=== PATIENT | female | born 1955 | race Two or more races ===

== ENCOUNTER 2016-08-07 13:40 | Inpatient (IN) | payer MEDICAID ==
[~2016-08-07] VITALS: Ht 162.6 cm; Wt 54.2 kg
[~2016-08-07 13:40] MED LIST: ASPI81CH43; BENA40TA2; ESOM40CA39; FENO5TAB; METF-312; POTA12PO2; PRAVASTATIN
[2016-08-07] MEDS ORDERED: SODIUM CHLORIDE 0.9% 500 ML IV ONE (14:35)
[2016-08-07] MEDS ORDERED: LORazepam 2MG/ML-1ML VIAL IV ONE (14:45)
[2016-08-07 15:00] LABS: Albumin 3.5 g/dL (3.4-5.0); BUN/Creatinine Ratio 26.3; Bilirubin, Total 0.2 mg/dL (0.2-1.0); Calcium 9.4 mg/dL (8.5-10.1); Potassium 4.4 mmol/L (3.5-5.1); Total Protein 7.5 g/dL (6.4-8.2)
[2016-08-07 15:03] LABS: Basophils # (auto) 0 uL; Basophils % (auto) 0.2 % (0.0-2.0); DEFINITIVE VIEW TRANSMISSION; Eosinophils # (auto) 0 uL; Eosinophils % (auto) 0.2 % (0.0-7.0); Hematocrit 42.8 % (36.0-46.0); Hemoglobin 13.6 g/dL (12.2-16.2); Lymphocytes # (auto) 2.3 uL; Mean Corpuscular Hemoglobin 26.8 pg (28.0-32.0); Mean Corpuscular Hgb Conc. 31.9 g/dL (32.0-36.0); Mean Platelet Volume 10.1 fL (7.4-10.4); Monocytes # (auto) 0.5 uL; Monocytes % (auto) 2.8 % (0.0-12.0); Neutrophils # (auto) 14.9 uL; Neutrophils % (auto) 83.8 % (37.0-80.0); Platelet Count (auto) 462 10^3/uL (140-450); Red Cell Distribution Width 18.9 % (11.6-16.0); White Blood Cell 17.7 10^3/uL (4.4-10.8)
[2016-08-07 15:27] LABS: Lactic Acid 6.6 mmol/L (0.4-2.0)
[2016-08-07 15:50] LABS: REFLEX LACTIC ACID YES OR NO YES
[2016-08-07] MEDS ORDERED: LEVOFLOXACIN 500MG 100 ML IV ONE (16:30)
[2016-08-07 16:59] LABS: Urine Bilirubin Negative (Negative); Urine Blood 1+ /uL (Negative); Urine Color Yellow (Yellow); Urine Glucose 3+ mg/dL (Normal); Urine Ketone Negative (Negative); Urine Nitrite Negative (Negative); Urine RBC 2 /hpf (0 - 4); Urine Urobilinogen Normal (Negative)
[2016-08-07] MEDS ORDERED: SODIUM CHLORIDE 0.9% 1,000 ML IV ONE ×2 (18:45→20:45)
[2016-08-07] MEDS ORDERED: HYDROmorphone HCL 2 MG/ML VL IV ONE (19:45)
[2016-08-07] MEDS ORDERED: ONDANSETRON HCL 4 MG/2 ML VIAL IV ONE (19:45)
[2016-08-07] MEDS: MEGESTROL ACETATE 20 MG TAB PO SCH (22:00)
[2016-08-07] MEDS ORDERED: VANCOMYCIN 1GM/250ML D5W 250 ML IV ONE (22:00)
[2016-08-07] MEDS: PRAVASTATIN SODIUM 20 MG TAB PO SCH (22:00)
[2016-08-07] MEDS ORDERED: NITROGLYCERIN 0.4 MG SL TAB SL PRN (22:15)
[2016-08-07] MEDS ORDERED: MORPHINE SULF INJ 2 MG/ML SYRINGE 1ML IV PRN (22:15)
[2016-08-07] MEDS ORDERED: ACETAMINOPHEN 325 MG TAB PO PRN (22:15)
[2016-08-07] MEDS ORDERED: ONDANSETRON HCL 4 MG/2 ML VIAL IV PRN (22:15)
[2016-08-07] MEDS ORDERED: DEXTROSE (50%) 50ML SYRG IV PRN (22:15)
[2016-08-07] MEDS: METOPROLOL TARTRATE 50 MG TAB PO SCH (22:29)
[2016-08-07] MEDS: HYDROcodone-ACET 5/325MG TAB PO PRN (22:31)
[2016-08-07 22:43] LABS: BUN/Creatinine Ratio 29.4; Calcium 7.9 mg/dL (8.5-10.1); Potassium 4.3 mmol/L (3.5-5.1)
[2016-08-07] MEDS: FAMOTIDINE 20 MG TAB PO SCH (22:45)
[2016-08-07] MEDS: ENOXAPARIN SOD 30 MG/0.3 ML SYRINGE SC SCH (22:45)
[2016-08-07 23:25] VITALS: BP 156/85
[2016-08-08] MEDS: PIPERACILLIN-TAZOB 3.375GM 100 ML IV SCH ×5 (00:10→23:34)
[2016-08-08] MEDS: ACCU-CHEK COMFORT CURVE STRIP VI SCH ×5 (00:15→23:34)
[2016-08-08] MEDS: InsuLIN REG 1unit/0.01ml Soln (100units/ml) SC SCH ×5 (00:15→23:34)
[2016-08-08] MEDS ORDERED: LISI10TA6 PO (00:42)
[2016-08-08] MEDS ORDERED: ATOR40TA52 PO (00:42)
[2016-08-08] MEDS ORDERED: MEGE40TA15 PO (00:42)
[2016-08-08] MEDS ORDERED: GABA300C8 PO (00:42)
[2016-08-08] MEDS ORDERED: PRAV20TA3 PO (00:42)
[2016-08-08] MEDS ORDERED: OMEP20CA5 OR (00:42)
[2016-08-08 05:00] VITALS: BP_SYST 147; BP_SYST 168; BP_DIAS 55; BP_DIAS 76
[2016-08-08] MEDS: HYDROcodone-ACET 5/325MG TAB PO PRN ×2 (05:14→09:09)
[2016-08-08 06:47] LABS: Basophils # (auto) 0 uL; Basophils % (auto) 0.3 % (0.0-2.0); Eosinophils # (auto) 0.1 uL; Eosinophils % (auto) 0.6 % (0.0-7.0); Hematocrit 30.5 % (36.0-46.0); Lymphocytes # (auto) 2.2 uL; Lymphocytes % (auto) 22.4 % (10.0-50.0); Mean Corpuscular Hemoglobin 27.2 pg (28.0-32.0); Mean Corpuscular Hgb Conc. 32.9 g/dL (32.0-36.0); Mean Corpuscular Volume 82.7 fL (80.0-100.0); Mean Platelet Volume 9.9 fL (7.4-10.4); Monocytes # (auto) 0.6 uL; Monocytes % (auto) 6.4 % (0.0-12.0); Neutrophils # (auto) 6.8 uL; Neutrophils % (auto) 70.3 % (37.0-80.0); Platelet Count (auto) 263 10^3/uL (140-450); Red Cell Distribution Width 18.5 % (11.6-16.0); White Blood Cell 9.7 10^3/uL (4.4-10.8)
[2016-08-08 06:58] LABS: Potassium 4.9 mmol/L (3.5-5.1)
[2016-08-08 07:07] LABS: Albumin 2.6 g/dL (3.4-5.0); BUN/Creatinine Ratio 26.5; Calcium 8.5 mg/dL (8.5-10.1)
[2016-08-08 07:21] LABS: Bilirubin, Total 0.2 mg/dL (0.2-1.0); Total Protein 5.4 g/dL (6.4-8.2)
[2016-08-08] MEDS: FAMOTIDINE 20 MG TAB PO SCH ×2 (09:10→21:37)
[2016-08-08] MEDS: MEGESTROL ACETATE 20 MG TAB PO SCH ×2 (09:11→21:37)
[2016-08-08] MEDS: METOPROLOL TARTRATE 50 MG TAB PO SCH ×3 (09:16→22:00)
[2016-08-08] MEDS: BENAZEPRIL HCL 10 MG TAB PO SCH (09:17)
[2016-08-08] MEDS ORDERED: HYDROcodone-ACET 5/325MG TAB PO PRN (10:43)
[2016-08-08] MEDS: KETOROLAC TROMETH 30 MG/ML 1ML VIAL IV PRN ×2 (11:06→18:41)
[2016-08-08 13:00] VITALS: BP 148/78
[2016-08-08 18:00] VITALS: BP 189/82
[2016-08-08] MEDS ORDERED: amLODIPine BESYLATE 5 MG TAB PO ONE (19:30)
[2016-08-08 20:00] VITALS: BP 150/115
[2016-08-08] MEDS ORDERED: ASPirin 81 mg TAB PO ONE (20:00)
[2016-08-08] MEDS: ENOXAPARIN SOD 30 MG/0.3 ML SYRINGE SC SCH (20:58)
[2016-08-08] MEDS: PRAVASTATIN SODIUM 20 MG TAB PO SCH (21:37)
[2016-08-08] MEDS: GABAPENTIN 300 MG CAP PO SCH (21:38)
[2016-08-08 22:53] LABS: Cholesterol 113 mg/dL (<200); HDL Cholesterol 40 mg/dL (40-59); LDL Cholesterol 50 mg/dL (<100); Triglycerides 131 mg/dL (<150)
[2016-08-08] MEDS: HYDROcodone-ACET 7.5/325MG TAB PO PRN (23:34)
[2016-08-09] MEDS: KETOROLAC TROMETH 30 MG/ML 1ML VIAL IV PRN ×3 (00:44→17:58)
[2016-08-09] MEDS: METOPROLOL TARTRATE 50 MG TAB PO SCH ×3 (05:20→22:01)
[2016-08-09] MEDS: GABAPENTIN 300 MG CAP PO SCH ×3 (05:32→22:02)
[2016-08-09] MEDS: ACCU-CHEK COMFORT CURVE STRIP VI SCH ×3 (05:34→18:07)
[2016-08-09] MEDS: PIPERACILLIN-TAZOB 3.375GM 100 ML IV SCH ×3 (05:34→17:49)
[2016-08-09] MEDS: InsuLIN REG 1unit/0.01ml Soln (100units/ml) SC SCH ×3 (05:40→18:08)
[2016-08-09] MEDS: metFORMIN HYDROCHLORIDE 500 MG TAB PO SCH ×2 (08:19→17:49)
[2016-08-09 09:00] VITALS: BP 177/70
[2016-08-09] MEDS: ASPirin 81 mg TAB PO SCH (10:55)
[2016-08-09] MEDS: FAMOTIDINE 20 MG TAB PO SCH ×2 (10:56→22:02)
[2016-08-09] MEDS: MEGESTROL ACETATE 20 MG TAB PO SCH ×2 (10:56→22:01)
[2016-08-09] MEDS: amLODIPine BESYLATE 5 MG TAB PO SCH (10:56)
[2016-08-09] MEDS: BENAZEPRIL HCL 10 MG TAB PO SCH (10:57)
[2016-08-09 13:00] VITALS: BP 130/67
[2016-08-09 17:00] VITALS: BP 182/77
[2016-08-09] MEDS: cloNIDine HCL 0.1 MG TAB PO PRN (18:56)
[2016-08-09] MEDS: ENOXAPARIN SOD 30 MG/0.3 ML SYRINGE SC SCH (20:37)
[2016-08-09] MEDS: PRAVASTATIN SODIUM 20 MG TAB PO SCH (22:02)
[2016-08-10] MEDS: PIPERACILLIN-TAZOB 3.375GM 100 ML IV SCH ×4 (00:02→17:39)
[2016-08-10] MEDS: KETOROLAC TROMETH 30 MG/ML 1ML VIAL IV PRN ×3 (00:02→19:48)
[2016-08-10] MEDS: ACCU-CHEK COMFORT CURVE STRIP VI SCH ×4 (00:02→17:57)
[2016-08-10] MEDS: cloNIDine HCL 0.1 MG TAB PO PRN ×2 (00:03→12:31)
[2016-08-10] MEDS: GABAPENTIN 300 MG CAP PO SCH ×3 (05:56→22:00)
[2016-08-10] MEDS: InsuLIN REG 1unit/0.01ml Soln (100units/ml) SC SCH ×4 (05:57→18:00)
[2016-08-10 07:59] LABS: INR 1.08 (0.9-1.15); Partial Thromboplastin Time 25.4 sec (22.64-33.71); Prothrombin Time 11.1 sec (9.37-12.3)
[2016-08-10] MEDS: metFORMIN HYDROCHLORIDE 500 MG TAB PO SCH (08:00)
[2016-08-10] MEDS ORDERED: IOHEXOL 350 MG/ML 100ML IJ ONE (08:44)
[2016-08-10 09:00] VITALS: BP 194/74
[2016-08-10] MEDS: MEGESTROL ACETATE 20 MG TAB PO SCH ×2 (10:15→22:00)
[2016-08-10] MEDS: ASPirin 81 mg TAB PO SCH (10:15)
[2016-08-10] MEDS: FAMOTIDINE 20 MG TAB PO SCH ×2 (10:15→22:01)
[2016-08-10] MEDS: BENAZEPRIL HCL 10 MG TAB PO SCH (10:18)
[2016-08-10] MEDS: CYANOCOBALAMIN 500 MCG TAB PO SCH (10:19)
[2016-08-10] MEDS: amLODIPine BESYLATE 5 MG TAB PO SCH (10:19)
[2016-08-10] MEDS: METOPROLOL TARTRATE 50 MG TAB PO SCH ×2 (10:19→22:01)
[2016-08-10 13:00] VITALS: BP 198/84
[2016-08-10 15:53] VITALS: BP 158/88
[2016-08-10 15:54] VITALS: BP 158/88
[2016-08-10] MEDS: ENOXAPARIN SOD 30 MG/0.3 ML SYRINGE SC SCH (19:48)
[2016-08-10 22:00] VITALS: BP 185/66
[2016-08-10] MEDS ORDERED: ATENOLOL 25 MG TAB PO SCH (22:00)
[2016-08-10] MEDS: PRAVASTATIN SODIUM 20 MG TAB PO SCH (22:00)
[2016-08-11] VITALS (7 sets, daily range): BP systolic 143–187; BP diastolic 69–76
[2016-08-11] MEDS: ACCU-CHEK COMFORT CURVE STRIP VI SCH ×4 (00:24→18:12)
[2016-08-11] MEDS: PIPERACILLIN-TAZOB 3.375GM 100 ML IV SCH ×4 (00:24→17:49)
[2016-08-11] MEDS: cloNIDine HCL 0.1 MG TAB PO PRN ×5 (00:24→22:10)
[2016-08-11] MEDS: KETOROLAC TROMETH 30 MG/ML 1ML VIAL IV PRN ×3 (02:12→22:00)
[2016-08-11] MEDS: InsuLIN REG 1unit/0.01ml Soln (100units/ml) SC SCH ×4 (05:29→18:13)
[2016-08-11] MEDS: GABAPENTIN 300 MG CAP PO SCH ×3 (05:29→21:04)
[2016-08-11 06:51] LABS: Basophils # (auto) 0.1 uL; Basophils % (auto) 0.6 % (0.0-2.0); DEFINITIVE VIEW TRANSMISSION; Eosinophils # (auto) 0.2 uL; Eosinophils % (auto) 2.9 % (0.0-7.0); Hematocrit 31.1 % (36.0-46.0); Hemoglobin 10.1 g/dL (12.2-16.2); Lymphocytes # (auto) 2.4 uL; Lymphocytes % (auto) 28.5 % (10.0-50.0); Mean Corpuscular Hemoglobin 26.9 pg (28.0-32.0); Mean Corpuscular Hgb Conc. 32.3 g/dL (32.0-36.0); Mean Corpuscular Volume 83.4 fL (80.0-100.0); Monocytes # (auto) 0.6 uL; Monocytes % (auto) 7.2 % (0.0-12.0); Neutrophils # (auto) 5.2 uL; Neutrophils % (auto) 60.8 % (37.0-80.0); Platelet Count (auto) 255 10^3/uL (140-450); White Blood Cell 8.6 10^3/uL (4.4-10.8)
[2016-08-11 07:08] LABS: Calcium 9.1 mg/dL (8.5-10.1); Potassium 4.5 mmol/L (3.5-5.1)
[2016-08-11 07:12] LABS: BUN/Creatinine Ratio 18.8
[2016-08-11] MEDS ORDERED: BUPIVACAINE 0.75% INJ 10ML MPV SDV IJ ONE ×2 (08:09→08:39)
[2016-08-11] MEDS ORDERED: ceFAZolin 1GM VL ONE (08:09)
[2016-08-11] MEDS ORDERED: ceFAZolin 1GM/50ML D5W 50 ML IV ONE (08:11)
[2016-08-11] MEDS ORDERED: fentaNYL CITRATE 100 MCG/2 ML VL ONE (08:14)
[2016-08-11] MEDS ORDERED: MIDAZOLAM HCL 1MG/1ML-2 ML VIAL ONE (08:14)
[2016-08-11] MEDS ORDERED: ONDANSETRON HCL 4 MG/2 ML VIAL IV ONE ×2 (08:15→09:15)
[2016-08-11] MEDS ORDERED: ePHEDrine SULFATE 50 MG/ML AMP IV PRN ×2 (08:15→09:15)
[2016-08-11] MEDS ORDERED: PROPOFOL 10 MG/ML 20 ML IV ONE (08:15)
[2016-08-11] MEDS ORDERED: LABETALOL HCL 5 MG/ML 4ML SYRINGE IV PRN ×2 (08:15→09:15)
[2016-08-11] MEDS ORDERED: MIDAZOLAM HCL 1MG/1ML-2 ML VIAL IV PRN ×2 (08:15→09:15)
[2016-08-11] MEDS ORDERED: ACCU-CHEK COMFORT CURVE STRIP VI ONE (08:15)
[2016-08-11] MEDS ORDERED: MORPHINE SULF INJ 2 MG/ML SYRINGE 1ML IV PRN ×2 (08:15→09:15)
[2016-08-11] MEDS ORDERED: DEXAMETHASONE SOD PHOS 10MG/1ML VIAL INJ ONE (08:15)
[2016-08-11] MEDS ORDERED: HYDROmorphone HCL 2 MG/ML VL IV PRN ×2 (08:15→09:15)
[2016-08-11] MEDS ORDERED: KETOROLAC TROMETH 30 MG/ML 1ML VIAL IV ONE ×2 (08:15→09:15)
[2016-08-11] MEDS ORDERED: NEOMYCIN-BACITRACIN-POLYM 15GM TOP OINT TOP ONE (08:50)
[2016-08-11] MEDS ORDERED: hydrALAZINE HCL 20 MG/ML VL IV PRN (09:15)
[2016-08-11] MEDS: BENAZEPRIL HCL 10 MG TAB PO SCH (10:14)
[2016-08-11] MEDS: amLODIPine BESYLATE 5 MG TAB PO SCH (10:14)
[2016-08-11] MEDS: FAMOTIDINE 20 MG TAB PO SCH ×2 (10:15→21:04)
[2016-08-11] MEDS: ASPirin 81 mg TAB PO SCH (10:15)
[2016-08-11] MEDS: MEGESTROL ACETATE 20 MG TAB PO SCH ×2 (10:15→21:04)
[2016-08-11] MEDS: CYANOCOBALAMIN 500 MCG TAB PO SCH (10:15)
[2016-08-11] MEDS: METOPROLOL TARTRATE 50 MG TAB PO SCH ×2 (10:15→21:03)
[2016-08-11] MEDS ORDERED: METOPROLOL TARTRATE 50 MG TAB PO ONE (12:00)
[2016-08-11] MEDS ORDERED: amLODIPine BESYLATE 5 MG TAB PO ONE (12:00)
[2016-08-11] MEDS: ENOXAPARIN SOD 30 MG/0.3 ML SYRINGE SC SCH (20:52)
[2016-08-11] MEDS: PRAVASTATIN SODIUM 20 MG TAB PO SCH (21:04)
[2016-08-12] MEDS: PIPERACILLIN-TAZOB 3.375GM 100 ML IV SCH ×5 (00:04→23:39)
[2016-08-12] MEDS: InsuLIN REG 1unit/0.01ml Soln (100units/ml) SC SCH ×5 (00:14→23:31)
[2016-08-12] MEDS: ACCU-CHEK COMFORT CURVE STRIP VI SCH ×5 (00:15→23:39)
[2016-08-12 04:55] VITALS: BP 167/77
[2016-08-12] MEDS: GABAPENTIN 300 MG CAP PO SCH ×3 (05:37→21:12)
[2016-08-12] MEDS: cloNIDine HCL 0.1 MG TAB PO PRN ×2 (06:00→16:43)
[2016-08-12 09:00] VITALS: BP 164/81
[2016-08-12] MEDS: ASPirin 81 mg TAB PO SCH (09:21)
[2016-08-12] MEDS: MEGESTROL ACETATE 20 MG TAB PO SCH ×2 (09:22→21:11)
[2016-08-12] MEDS: FAMOTIDINE 20 MG TAB PO SCH ×2 (09:22→21:11)
[2016-08-12] MEDS: amLODIPine BESYLATE 5 MG TAB PO SCH (09:22)
[2016-08-12] MEDS: CYANOCOBALAMIN 500 MCG TAB PO SCH (09:23)
[2016-08-12] MEDS: METOPROLOL TARTRATE 50 MG TAB PO SCH ×2 (09:23→21:38)
[2016-08-12] MEDS: BENAZEPRIL HCL 10 MG TAB PO SCH (09:24)
[2016-08-12 13:00] VITALS: BP 167/75
[2016-08-12] MEDS: KETOROLAC TROMETH 30 MG/ML 1ML VIAL IV PRN (16:46)
[2016-08-12 17:00] VITALS: BP 159/72
[2016-08-12] MEDS: glipiZIDE 5 MG TAB PO SCH (17:08)
[2016-08-12] MEDS ORDERED: metFORMIN HYDROCHLORIDE 500 MG TAB PO SCH (18:00)
[2016-08-12] MEDS: metFORMIN HYDROCHLORIDE 500 MG TAB PO SCH (18:10)
[2016-08-12] MEDS: ENOXAPARIN SOD 30 MG/0.3 ML SYRINGE SC SCH (19:37)
[2016-08-12] MEDS: PRAVASTATIN SODIUM 20 MG TAB PO SCH (21:11)
[2016-08-12 21:32] VITALS: BP 157/72
[2016-08-13] MEDS: KETOROLAC TROMETH 30 MG/ML 1ML VIAL IV PRN (02:04)
[2016-08-13 05:00] VITALS: BP 166/79
[2016-08-13] MEDS: ACCU-CHEK COMFORT CURVE STRIP VI SCH ×4 (06:00→23:45)
[2016-08-13] MEDS: PIPERACILLIN-TAZOB 3.375GM 100 ML IV SCH ×4 (06:27→23:41)
[2016-08-13] MEDS: cloNIDine HCL 0.1 MG TAB PO PRN ×2 (06:28→14:56)
[2016-08-13] MEDS: GABAPENTIN 300 MG CAP PO SCH ×3 (06:28→22:23)
[2016-08-13] MEDS: glipiZIDE 5 MG TAB PO SCH (06:36)
[2016-08-13] MEDS: InsuLIN REG 1unit/0.01ml Soln (100units/ml) SC SCH ×4 (06:41→23:49)
[2016-08-13 06:45] LABS: BUN/Creatinine Ratio 19.3; Calcium 8.7 mg/dL (8.5-10.1)
[2016-08-13] MEDS: metFORMIN HYDROCHLORIDE 500 MG TAB PO SCH ×2 (08:15→18:04)
[2016-08-13 08:56] VITALS: BP 166/77
[2016-08-13] MEDS: MEGESTROL ACETATE 20 MG TAB PO SCH ×2 (09:13→22:23)
[2016-08-13] MEDS: BENAZEPRIL HCL 10 MG TAB PO SCH (09:14)
[2016-08-13] MEDS: METOPROLOL TARTRATE 50 MG TAB PO SCH ×2 (09:14→22:22)
[2016-08-13] MEDS: CYANOCOBALAMIN 500 MCG TAB PO SCH (09:15)
[2016-08-13] MEDS: ASPirin 81 mg TAB PO SCH (09:15)
[2016-08-13] MEDS: amLODIPine BESYLATE 5 MG TAB PO SCH (09:15)
[2016-08-13] MEDS: FAMOTIDINE 20 MG TAB PO SCH ×2 (09:15→22:23)
[2016-08-13 13:00] VITALS: BP 164/72
[2016-08-13] MEDS: HYDROcodone-ACET 7.5/325MG TAB PO PRN ×2 (13:21→20:03)
[2016-08-13 17:00] VITALS: BP 146/69
[2016-08-13] MEDS: ENOXAPARIN SOD 30 MG/0.3 ML SYRINGE SC SCH (20:01)
[2016-08-13 22:03] VITALS: BP 160/71
[2016-08-13] MEDS: PRAVASTATIN SODIUM 20 MG TAB PO SCH (22:22)
[2016-08-14] MEDS: HYDROcodone-ACET 7.5/325MG TAB PO PRN ×4 (02:31→22:27)
[2016-08-14 05:00] VITALS: BP 157/74
[2016-08-14] MEDS: GABAPENTIN 300 MG CAP PO SCH ×3 (05:22→22:28)
[2016-08-14] MEDS: glipiZIDE 5 MG TAB PO SCH (05:22)
[2016-08-14] MEDS: ACCU-CHEK COMFORT CURVE STRIP VI SCH ×3 (05:22→18:17)
[2016-08-14] MEDS: PIPERACILLIN-TAZOB 3.375GM 100 ML IV SCH ×3 (05:23→17:55)
[2016-08-14] MEDS: InsuLIN REG 1unit/0.01ml Soln (100units/ml) SC SCH ×3 (05:46→18:16)
[2016-08-14] MEDS: CYANOCOBALAMIN 500 MCG TAB PO SCH (09:34)
[2016-08-14] MEDS: MEGESTROL ACETATE 20 MG TAB PO SCH ×2 (09:35→22:27)
[2016-08-14] MEDS: FAMOTIDINE 20 MG TAB PO SCH ×2 (09:35→22:28)
[2016-08-14] MEDS: metFORMIN HYDROCHLORIDE 500 MG TAB PO SCH ×2 (09:35→17:55)
[2016-08-14] MEDS: ASPirin 81 mg TAB PO SCH (09:36)
[2016-08-14] MEDS: BENAZEPRIL HCL 10 MG TAB PO SCH (09:37)
[2016-08-14] MEDS: amLODIPine BESYLATE 5 MG TAB PO SCH (09:37)
[2016-08-14] MEDS: METOPROLOL TARTRATE 50 MG TAB PO SCH ×2 (09:38→22:28)
[2016-08-14 13:35] LABS: Basophils # (auto) 0 uL; Basophils % (auto) 0.3 % (0.0-2.0); Eosinophils # (auto) 0.3 uL; Eosinophils % (auto) 2.7 % (0.0-7.0); Hematocrit 33.1 % (36.0-46.0); Hemoglobin 11.2 g/dL (12.2-16.2); Lymphocytes # (auto) 1.9 uL; Lymphocytes % (auto) 17.4 % (10.0-50.0); Mean Corpuscular Hemoglobin 27.9 pg (28.0-32.0); Mean Corpuscular Hgb Conc. 33.8 g/dL (32.0-36.0); Mean Corpuscular Volume 82.6 fL (80.0-100.0); Mean Platelet Volume 9.7 fL (7.4-10.4); Monocytes # (auto) 0.6 uL; Monocytes % (auto) 5.8 % (0.0-12.0); Neutrophils # (auto) 8.1 uL; Neutrophils % (auto) 73.8 % (37.0-80.0); Platelet Count (auto) 282 10^3/uL (140-450); Red Cell Distribution Width 18.2 % (11.6-16.0); White Blood Cell 10.9 10^3/uL (4.4-10.8)
[2016-08-14] MEDS: cloNIDine HCL 0.1 MG TAB PO PRN (17:55)
[2016-08-14] MEDS: ENOXAPARIN SOD 30 MG/0.3 ML SYRINGE SC SCH (20:30)
[2016-08-14] MEDS: PRAVASTATIN SODIUM 20 MG TAB PO SCH (22:28)
[2016-08-15] MEDS: cloNIDine HCL 0.1 MG TAB PO PRN ×4 (00:36→20:27)
[2016-08-15 05:00] VITALS: BP 155/68
[2016-08-15] MEDS: InsuLIN REG 1unit/0.01ml Soln (100units/ml) SC SCH ×4 (06:00→18:26)
[2016-08-15] MEDS: ACCU-CHEK COMFORT CURVE STRIP VI SCH ×4 (06:24→18:14)
[2016-08-15] MEDS: GABAPENTIN 300 MG CAP PO SCH ×3 (06:26→21:52)
[2016-08-15] MEDS: glipiZIDE 5 MG TAB PO SCH (06:27)
[2016-08-15] MEDS: PIPERACILLIN-TAZOB 3.375GM 100 ML IV SCH ×4 (06:27→18:15)
[2016-08-15] MEDS: HYDROcodone-ACET 7.5/325MG TAB PO PRN ×3 (06:27→21:53)
[2016-08-15] MEDS: metFORMIN HYDROCHLORIDE 500 MG TAB PO SCH ×2 (08:25→18:10)
[2016-08-15 09:00] VITALS: BP 173/72
[2016-08-15] MEDS: MEGESTROL ACETATE 20 MG TAB PO SCH ×2 (10:46→21:52)
[2016-08-15] MEDS: FAMOTIDINE 20 MG TAB PO SCH ×2 (10:46→21:52)
[2016-08-15] MEDS: CYANOCOBALAMIN 500 MCG TAB PO SCH (10:46)
[2016-08-15] MEDS: ASPirin 81 mg TAB PO SCH (10:46)
[2016-08-15] MEDS: METOPROLOL TARTRATE 50 MG TAB PO SCH ×2 (10:48→21:53)
[2016-08-15] MEDS: BENAZEPRIL HCL 10 MG TAB PO SCH (10:49)
[2016-08-15] MEDS: amLODIPine BESYLATE 5 MG TAB PO SCH (10:50)
[2016-08-15 13:00] VITALS: BP 160/80
[2016-08-15 16:54] VITALS: BP 151/68
[2016-08-15] MEDS: ENOXAPARIN SOD 30 MG/0.3 ML SYRINGE SC SCH (20:27)
[2016-08-15] MEDS: PRAVASTATIN SODIUM 20 MG TAB PO SCH (21:52)
[2016-08-15 22:00] VITALS: BP 156/70
[2016-08-16] VITALS (44 sets, daily range): BP systolic 84–202; BP diastolic 50–110
[2016-08-16] MEDS: cloNIDine HCL 0.1 MG TAB PO PRN ×2 (02:20→04:22)
[2016-08-16] MEDS: HYDROcodone-ACET 7.5/325MG TAB PO PRN (05:13)
[2016-08-16] MEDS: InsuLIN REG 1unit/0.01ml Soln (100units/ml) SC SCH ×5 (06:00→23:53)
[2016-08-16] MEDS: glipiZIDE 5 MG TAB PO SCH (06:19)
[2016-08-16] MEDS: GABAPENTIN 300 MG CAP PO SCH ×3 (06:19→22:24)
[2016-08-16] MEDS: PIPERACILLIN-TAZOB 3.375GM 100 ML IV SCH ×5 (06:20→23:51)
[2016-08-16] MEDS: ACCU-CHEK COMFORT CURVE STRIP VI SCH ×5 (06:20→23:50)
[2016-08-16] MEDS: metFORMIN HYDROCHLORIDE 500 MG TAB PO SCH ×2 (08:00→18:00)
[2016-08-16] MEDS: FAMOTIDINE 20 MG TAB PO SCH ×2 (09:18→22:24)
[2016-08-16] MEDS: amLODIPine BESYLATE 5 MG TAB PO SCH (09:19)
[2016-08-16] MEDS: METOPROLOL TARTRATE 50 MG TAB PO SCH ×2 (09:19→22:00)
[2016-08-16] MEDS: MEGESTROL ACETATE 20 MG TAB PO SCH ×2 (09:20→22:24)
[2016-08-16] MEDS: CYANOCOBALAMIN 500 MCG TAB PO SCH (09:20)
[2016-08-16] MEDS: BENAZEPRIL HCL 10 MG TAB PO SCH (09:20)
[2016-08-16] MEDS: ASPirin 81 mg TAB PO SCH (09:20)
[2016-08-16] MEDS ORDERED: MIDAZOLAM HCL 1MG/1ML-2 ML VIAL IV PRN (13:30)
[2016-08-16] MEDS: MIDAZOLAM DRIP 100 mg/100mL NS 100 ML IV SCH (13:51)
[2016-08-16 15:03] LABS: BUN/Creatinine Ratio 15.9; Calcium 9.4 mg/dL (8.5-10.1); Potassium 4.7 mmol/L (3.5-5.1)
[2016-08-16] MEDS ORDERED: SODIUM BICARBONATE 8.4% INJ 50ML SYRINGE IV ONE (16:29)
[2016-08-16] MEDS ORDERED: EPINEPHrine HCL 1 MG/10 ML SYRG IV ONE (16:29)
[2016-08-16] MEDS: SOD CHL 0.45% 1,000 ML IV SCH (18:14)
[2016-08-16] MEDS: ENOXAPARIN SOD 60 MG/0.6 ML SYRINGE SC SCH (21:08)
[2016-08-16] MEDS: PRAVASTATIN SODIUM 20 MG TAB PO SCH (22:24)
[2016-08-17] VITALS (102 sets, daily range): BP systolic 123–175; BP diastolic 50–97
[2016-08-17] MEDS: SOD CHL 0.45% 1,000 ML IV SCH ×2 (03:45→10:50)
[2016-08-17 04:11] LABS: Basophils # (auto) 0 uL; Basophils % (auto) 0.5 % (0.0-2.0); Eosinophils # (auto) 0.1 uL; Eosinophils % (auto) 1.4 % (0.0-7.0); Hemoglobin 9.3 g/dL (12.2-16.2); Lymphocytes # (auto) 1.5 uL; Lymphocytes % (auto) 16.6 % (10.0-50.0); Mean Corpuscular Hemoglobin 27.6 pg (28.0-32.0); Mean Corpuscular Hgb Conc. 33.1 g/dL (32.0-36.0); Mean Corpuscular Volume 83.4 fL (80.0-100.0); Mean Platelet Volume 9.9 fL (7.4-10.4); Monocytes # (auto) 0.7 uL; Monocytes % (auto) 7.6 % (0.0-12.0); Neutrophils # (auto) 6.6 uL; Neutrophils % (auto) 73.9 % (37.0-80.0); Platelet Count (auto) 247 10^3/uL (140-450); Red Cell Distribution Width 17.5 % (11.6-16.0)
[2016-08-17 04:30] LABS: BUN/Creatinine Ratio 16.1; Calcium 8.5 mg/dL (8.5-10.1); Potassium 3.9 mmol/L (3.5-5.1)
[2016-08-17] MEDS: PIPERACILLIN-TAZOB 3.375GM 100 ML IV SCH ×3 (05:53→18:22)
[2016-08-17] MEDS: GABAPENTIN 300 MG CAP PO SCH ×3 (05:54→23:12)
[2016-08-17] MEDS: ACCU-CHEK COMFORT CURVE STRIP VI SCH ×3 (05:54→18:24)
[2016-08-17] MEDS: InsuLIN REG 1unit/0.01ml Soln (100units/ml) SC SCH ×3 (06:05→18:24)
[2016-08-17] MEDS: glipiZIDE 5 MG TAB PO SCH (07:00)
[2016-08-17] MEDS: metFORMIN HYDROCHLORIDE 500 MG TAB PO SCH ×2 (08:00→18:00)
[2016-08-17] MEDS: MIDAZOLAM DRIP 100 mg/100mL NS 100 ML IV SCH (10:49)
[2016-08-17] MEDS: amLODIPine BESYLATE 5 MG TAB PO SCH (12:51)
[2016-08-17] MEDS: CYANOCOBALAMIN 500 MCG TAB PO SCH (12:52)
[2016-08-17] MEDS: BENAZEPRIL HCL 10 MG TAB PO SCH (12:52)
[2016-08-17] MEDS: FAMOTIDINE 20 MG TAB PO SCH ×2 (12:54→23:12)
[2016-08-17] MEDS: ASPirin 81 mg TAB PO SCH (12:55)
[2016-08-17] MEDS: MEGESTROL ACETATE 20 MG TAB PO SCH ×2 (13:13→23:11)
[2016-08-17] MEDS: ENOXAPARIN SOD 60 MG/0.6 ML SYRINGE SC SCH (18:22)
[2016-08-17] MEDS: PRAVASTATIN SODIUM 20 MG TAB PO SCH (23:12)
[2016-08-18] VITALS (83 sets, daily range): BP systolic 132–189; BP diastolic 50–79
[2016-08-18] MEDS: ACCU-CHEK COMFORT CURVE STRIP VI SCH ×4 (00:04→17:42)
[2016-08-18] MEDS: PIPERACILLIN-TAZOB 3.375GM 100 ML IV SCH ×4 (00:05→17:42)
[2016-08-18] MEDS: SOD CHL 0.45% 1,000 ML IV SCH ×3 (00:08→21:23)
[2016-08-18 03:48] LABS: Basophils # (auto) 0.1 uL; Basophils % (auto) 0.7 % (0.0-2.0); Eosinophils # (auto) 0.2 uL; Hematocrit 29.5 % (36.0-46.0); Hemoglobin 9.7 g/dL (12.2-16.2); Lymphocytes # (auto) 1.4 uL; Lymphocytes % (auto) 11.4 % (10.0-50.0); Mean Corpuscular Hemoglobin 27.5 pg (28.0-32.0); Mean Corpuscular Hgb Conc. 32.9 g/dL (32.0-36.0); Mean Corpuscular Volume 83.6 fL (80.0-100.0); Mean Platelet Volume 9.9 fL (7.4-10.4); Monocytes # (auto) 0.9 uL; Monocytes % (auto) 7.6 % (0.0-12.0); Neutrophils # (auto) 9.4 uL; Neutrophils % (auto) 78.3 % (37.0-80.0); Platelet Count (auto) 267 10^3/uL (140-450); Red Cell Distribution Width 17.9 % (11.6-16.0)
[2016-08-18] MEDS: cloNIDine HCL 0.1 MG TAB PO PRN ×4 (05:35→21:24)
[2016-08-18] MEDS: InsuLIN REG 1unit/0.01ml Soln (100units/ml) SC SCH ×4 (05:42→17:46)
[2016-08-18] MEDS: GABAPENTIN 300 MG CAP PO SCH ×3 (05:46→21:55)
[2016-08-18 06:37] LABS: Calcium 8.9 mg/dL (8.5-10.1); Potassium 4.1 mmol/L (3.5-5.1)
[2016-08-18] MEDS: glipiZIDE 5 MG TAB PO SCH (07:00)
[2016-08-18] MEDS: metFORMIN HYDROCHLORIDE 500 MG TAB PO SCH ×2 (07:57→17:42)
[2016-08-18] MEDS: ASPirin 81 mg TAB PO SCH (09:23)
[2016-08-18] MEDS: amLODIPine BESYLATE 5 MG TAB PO SCH (09:23)
[2016-08-18] MEDS: MEGESTROL ACETATE 20 MG TAB PO SCH ×2 (09:24→21:55)
[2016-08-18] MEDS: CYANOCOBALAMIN 500 MCG TAB PO SCH (09:24)
[2016-08-18] MEDS: FAMOTIDINE 20 MG TAB PO SCH ×2 (09:24→21:55)
[2016-08-18] MEDS: BENAZEPRIL HCL 10 MG TAB PO SCH (09:24)
[2016-08-18] MEDS: MIDAZOLAM DRIP 100 mg/100mL NS 100 ML IV SCH (13:22)
[2016-08-18] MEDS: ENOXAPARIN SOD 60 MG/0.6 ML SYRINGE SC SCH (17:42)
[2016-08-18] MEDS: PRAVASTATIN SODIUM 20 MG TAB PO SCH (21:55)
== END 2016-08-18 23:25 | disposition home health service (06) | DRG 710 ==
LOC: EDUNIT# 13:40 → ER 13:43 → EDBD 13:43 → TELE 13:44 → TELE-EAST 23:25 → ICU WEST 08-16 16:25
PROVIDERS: ADMIT Internal Medicine; ATTEND Internal Medicine Pulmonary Disease
PROC: 5A1945Z Respiratory Ventilation, 24-96 Consecutive Hours (ICD-10-PCS; 2016-08-07)
PROC: 0BH17EZ Insertion of Endotracheal Airway into Trachea, Via Natural or Artificial Opening (ICD-10-PCS; 2016-08-07)
PROC: 0QBR0ZZ Excision of Left Toe Phalanx, Open Approach (ICD-10-PCS; principal; 2016-08-11 08:29)
DX: A41.9 Sepsis, unspecified organism (principal); N17.0 Acute kidney failure with tubular necrosis; L97.524 Non-pressure chronic ulcer of other part of left foot with necrosis of bone; G92 Toxic encephalopathy; I96 Gangrene, not elsewhere classified; E87.2 Acidosis; E11.52 Type 2 diabetes mellitus with diabetic peripheral angiopathy with gangrene; E11.649 Type 2 diabetes mellitus with hypoglycemia without coma; E11.621 Type 2 diabetes mellitus with foot ulcer; E11.40 Type 2 diabetes mellitus with diabetic neuropathy, unspecified; D64.9 Anemia, unspecified; E11.65 Type 2 diabetes mellitus with hyperglycemia; E78.5 Hyperlipidemia, unspecified; F17.210 Nicotine dependence, cigarettes, uncomplicated; F41.9 Anxiety disorder, unspecified; I69.344 Monoplegia of lower limb following cerebral infarction affecting left non-dominant side; I70.0 Atherosclerosis of aorta; I73.9 Peripheral vascular disease, unspecified; Z79.82 Long term (current) use of aspirin; Z89.429 Acquired absence of other toe(s), unspecified side; I10 Essential (primary) hypertension; Z90.89 Acquired absence of other organs; I65.29 Occlusion and stenosis of unspecified carotid artery
CPT/HCPCS: 36415; 36600; 51702; 70450; 71010; 73630; 75635; 80048; 80053; 80061; 81001; 82607; 82805; 82962; 83036; 83605; 83735; 84132; 84439; 84443; 84484; 85025; 85379; 85610; 85730; 87040; 87070; 87075; 87081; 87205; 93005; 93886; 93923; 93970; 94002; 94003; 94761; 95819; 96361; 96365; 96367; 96375; 97530; J0690; J1100; J1815; J1885; J1956; J2250; J2405; J2543; J2704; J3490